=== PATIENT | male | born 1980 | race Caucasian/White ===

== ENCOUNTER 2019-01-18 10:17 | Outpatient (CLI) | payer MEDICAID | END 2019-01-18 10:18 | disposition home or self-care (01) | LOC: PULMO 10:17 | DX: R06.00 Dyspnea, unspecified (principal); M79.604 Pain in right leg; M79.605 Pain in left leg; M79.89 Other specified soft tissue disorders; I83.819 Varicose veins of unspecified lower extremity with pain ==